=== PATIENT | male | born 1955 | race African-American/Black ===

== ENCOUNTER 2017-09-11 00:11 | Emergency (ER) | payer MEDICAID ==
[~2017-09-11] VITALS: Ht 175.3 cm; Wt 120.0 kg
[2017-09-11 00:17] VITALS: BP 148/92
== END 2017-09-11 10:00 | disposition left against medical advice (07) ==
LOC: ER 00:11
DX: M79.671 Pain in right foot (principal)
CPT/HCPCS: 99283